=== PATIENT | male | born 1995 | race Hispanic/Latino ===

== ENCOUNTER 2022-10-11 12:04 | Day surgery (SDC) | payer OTHER ==
[~2022-10-11] VITALS: Ht 170.2 cm; Wt 85.6 kg
[~2022-10-11 12:04] MED LIST: IBUP80TA PO; NS 1,000 ML IV ONE; SUMA50TA2 PO
[2022-10-11] MEDS ORDERED: fentaNYL 100 MCG/2 ML INJECTION As Ordered ONE (14:32)
[2022-10-11 14:49] VITALS: TEMP 98.1
[2022-10-11 15:02] VITALS: BP 107/70; O2SAT 99
== END 2022-10-11 15:05 | disposition home or self-care (01) ==
LOC: M OPP 12:04
PROVIDERS: ATTEND Internal Medicine Gastroenterology
DX: Q45.3 Other congenital malformations of pancreas and pancreatic duct (principal); K29.70 Gastritis, unspecified, without bleeding; K22.89 Other specified disease of esophagus; Z79.1 Long term (current) use of non-steroidal anti-inflammatories (NSAID); Z79.899 Other long term (current) drug therapy
CPT/HCPCS: 43239; 88305; J3010

== ENCOUNTER → 2022-11-13 | Outpatient (CLI) | payer OTHER ==
[~2022-11-13] MED LIST changes: -NS 1,000 ML IV ONE
== END ==
LOC: M LAB 13:16
PROVIDERS: ATTEND Internal Medicine Gastroenterology
DX: Z79.899 Other long term (current) drug therapy (principal); B96.81 Helicobacter pylori [H. pylori] as the cause of diseases classified elsewhere

== ENCOUNTER → 2023-02-12 | Outpatient (CLI) | payer OTHER ==
[2023-02-12 14:12] LABS: PLATELET COUNT, AUTOMATED 239 10^3/uL (150-450)
[2023-02-12 14:16] LABS: COLLAGEN EPINEPHRINE 92 SECONDS (74-162)
[2023-02-12 14:24] LABS: INR 1.07; PROTHROMBIN TIME 13.6 SECONDS (12.5-14.5)
[2023-02-12 14:25] LABS: PARTIAL THROMBOPLASTIN TIME 26.1 SECONDS (24.8-34.2)
== END ==
LOC: M LAB 13:11
PROVIDERS: ATTEND Physical Medicine & Rehabilitation
DX: Z01.818 Encounter for other preprocedural examination (principal)